=== PATIENT | male | born 1970 | race American Indian/Alaskan Native ===

== ENCOUNTER 2020-04-04 12:21 | Outpatient (CLI) | payer OTHER ==
--- NOTE | 2020-04-04 14:25 | XRay Report ---
RIGHT SHOULDER 2 VIEW(S) INDICATION / CLINICAL INFORMATION: RIGHT SHOULDER PAIN COMPARISON: None available. FINDINGS: BONES / JOINT(S): No acute fracture or subluxation. Moderate osteoarthritis of the AC joint. SOFT TISSUES: No significant abnormality. ADDITIONAL FINDINGS: None. IMPRESSION: Moderate right AC osteoarthritis. No acute osseous findings in the right shoulder. Signer Name: Gonzalo Aguila MD Signed: 04/04/2020 2:20 PM Workstation Name: [id number]
--- NOTE | 2020-04-04 14:27 | XRay Report ---
LUMBAR SPINE 3 VIEWS INDICATION / CLINICAL INFORMATION: BACK PAIN. COMPARISON: None available. FINDINGS: VERTEBRAE: No acute fracture. No significant malalignment. DISC SPACES / FACET JOINTS:No significant abnormality. PARASPINAL SOFT TISSUES:No significant abnormality. ADDITIONAL FINDINGS: None. Signer Name: Fernando Fernandes MD Signed: 04/04/2020 2:22 PM Workstation Name: [id number]
--- NOTE | 2020-04-04 14:29 | XRay Report ---
BILATERAL KNEE 3 VIEW(S) INDICATION / CLINICAL INFORMATION: RIGHT/LEFT KNEE PAIN COMPARISON: None available. FINDINGS: BONES / JOINT(S): No acute fracture or subluxation. No significant arthritis. SOFT TISSUES: Mild bilateral suprapatellar knee joint effusions. Enthesopathy noted at the quadriceps insertion on the right. Vascular stent graft material noted in the left leg. ADDITIONAL FINDINGS: None. Signer Name: Fernando Fernandes MD Signed: 04/04/2020 2:24 PM Workstation Name: [id number]
== END 2020-04-04 12:22 | disposition home or self-care (01) ==
LOC: XRAY 12:21
PROVIDERS: ATTEND Internal Medicine
DX: M19.011 Primary osteoarthritis, right shoulder (principal); M25.461 Effusion, right knee; M25.462 Effusion, left knee; M76.892 Other specified enthesopathies of left lower limb, excluding foot
CPT/HCPCS: 72100